=== PATIENT | male | born 1940 | race Hispanic/Latino ===

== ENCOUNTER 2017-10-08 14:41 | Inpatient (IN) | payer MEDICARE ==
[2017-10-08] MEDS ORDERED: ZOFRAN IV ONE (16:23)
[2017-10-08] MEDS ORDERED: MORPHINE IV ONE (16:23)
[2017-10-08] MEDS ORDERED: NACL 0.9% 1000 ML 1,000 ML IV ONE (16:23)
[2017-10-08 17:02] LABS: Basophils # (Auto) 0.1 K/mm3 (0.0-0.1); Basophils % (Auto) 0.7 % (0.0-1.8); Eosinophils # (Auto) 0.4 K/mm3 (0.0-0.4); Eosinophils % (Auto) 5.2 % (0.0-4.3); Hemoglobin 13.4 gm/dl (11.8-15.2); Lymphocytes # (Auto) 1.3 K/mm3 (1.2-5.4); Lymphocytes % (Auto) 15.6 % (13.4-35.0); Mean Corpuscular HGB Conc 33 % (32-34); Mean Corpuscular Hemoglobin 28 pg (28-32); Mean Corpuscular Volume 86 fl (84-94); Monocytes # (Auto) 0.7 K/mm3 (0.0-0.8); Monocytes % (Auto) 8.7 % (0.0-7.3); Platelet Count 264 K/mm3 (140-440); Red Blood Count 4.77 M/mm3 (3.65-5.03); Red Cell Distribution Width 15.7 % (13.2-15.2)
[2017-10-08 17:10] LABS: INR 2.72 (0.87-1.13)
[2017-10-08 17:11] LABS: Partial Thromboplastin Time 51.7 Sec. (24.2-36.6)
[2017-10-08 17:23] LABS: BUN/Creatinine Ratio 23; Blood Urea Nitrogen 14 mg/dL (9-20); Calcium 8.7 mg/dL (8.4-10.2); Hemolysis Index 5
--- NOTE | 2017-10-08 17:45 | Emergency Department Report ---
ED Fall HPI - General Chief Complaint: Fall Stated Complaint: FELL YESTERDAY/GENERLIZED WEAKNESS Time Seen by Provider: 10/08/17 16:14 Source: patient Mode of arrival: Stretcher - History of Present Illness Initial Comments: Patient is a 77-year-old male who is presenting status post a fall yesterday. Patient states he walks with a walker because of significant weakness and he bought a new walking yesterday that while trying to use it it collapsed. Patient states he fell forward and rolled. Patient states he went down on his knees first. The patient denies any loss of consciousness. Patient complaining of bilateral knee pain his right upper extremity has bruising but there is no bony tenderness. Patient also states he has a mild headache and neck tenderness. Patient states takes some pains are approximate 7 out of 10 in severity. Patient has been ambulatory since the fall. This occurred last night and the patient was hurting more this morning and could not stand unassisted of this morning which is what prompted him to come to the hospital. - Related Data Home Medications Medication Instructions Recorded Confirmed Last Taken Ascorbic Acid [Vitamin C] 1,000 mg PO QDAY 10/08/17 10/08/17 Unknown Cholecalciferol (Vitamin D3) 500 unit PO QDAY 10/08/17 10/08/17 Unknown [Vitamin D3] Diltiazem [CarDIZEM] 60 mg PO BID 10/08/17 10/08/17 Unknown Duloxetine HCl [DULoxetine] 30 mg PO QDAY 10/08/17 10/08/17 Unknown Folic Acid 400 mcg PO QDAY 10/08/17 10/08/17 Unknown Multivit-Min/FA/Lycopen/Lutein 1 each PO QDAY 10/08/17 10/08/17 Unknown [Centrum Silver Tablet] [place]-3 Fatty Acids/Fish Oil [Fish 300 mg PO QDAY 10/08/17 10/08/17 Unknown Oil] Rosuvastatin Calcium 5 mg PO QWEEK 10/08/17 10/08/17 Unknown Warfarin [Coumadin] 7.5 mg PO QDAY 10/08/17 10/08/17 Unknown Warfarin [Coumadin] 10 mg PO QWEEK 10/08/17 10/08/17 Unknown glipiZIDE [glipiZIDE ER] 5 mg PO BID 10/08/17 10/08/17 Unknown metFORMIN [Glucophage] 1,000 mg PO QHS 10/08/17 10/08/17 Unknown Previous Rx's Medication Instructions Recorded Last Taken Type Tamsulosin [Flomax] 0.4 mg PO BID #60 capsule 10/09/17 Unknown Rx Allergies Allergy/AdvReac Type Severity Reaction Status Date / Time No Known Allergies Allergy Unverified 03/25/14 10:36 ED Review of Systems ROS: Stated complaint: FELL YESTERDAY/GENERLIZED WEAKNESS Other details as noted in HPI Comment: All other systems reviewed and negative ED Past Medical Hx - Past Medical History Hx Hypertension: Yes Hx Diabetes: Yes Hx COPD: Yes Additional medical history: High cholesterol - Social History Smoking Status: Never Smoker Substance Use Type: None - Medications Home Medications: Home Medications Medication Instructions Recorded Confirmed Last Taken Type Ascorbic Acid [Vitamin C] 1,000 mg PO QDAY 10/08/17 10/08/17 Unknown History Cholecalciferol (Vitamin D3) 500 unit PO QDAY 10/08/17 10/08/17 Unknown History [Vitamin D3] Diltiazem [CarDIZEM] 60 mg PO BID 10/08/17 10/08/17 Unknown History Duloxetine HCl [DULoxetine] 30 mg PO QDAY 10/08/17 10/08/17 Unknown History Folic Acid 400 mcg PO QDAY 10/08/17 10/08/17 Unknown History Multivit-Min/FA/Lycopen/Lutein 1 each PO QDAY 10/08/17 10/08/17 Unknown History [Centrum Silver Tablet] [place]-3 Fatty Acids/Fish Oil [Fish 300 mg PO QDAY 10/08/17 10/08/17 Unknown History Oil] Rosuvastatin Calcium 5 mg PO QWEEK 10/08/17 10/08/17 Unknown History Warfarin [Coumadin] 7.5 mg PO QDAY 10/08/17 10/08/17 Unknown History Warfarin [Coumadin] 10 mg PO QWEEK 10/08/17 10/08/17 Unknown History glipiZIDE [glipiZIDE ER] 5 mg PO BID 10/08/17 10/08/17 Unknown History metFORMIN [Glucophage] 1,000 mg PO QHS 10/08/17 10/08/17 Unknown History Tamsulosin [Flomax] 0.4 mg PO BID #60 capsule 10/09/17 Unknown Rx ED Physical Exam - General Limitations: No Limitations General appearance: alert, in no apparent distress - Head Head exam: Present: normocephalic, other (patient has a small abrasion at the bridge of the nose) - Eye Eye exam: Present: normal appearance - ENT ENT exam: Present: mucous membranes moist - Neck Neck exam: Present: normal inspection, tenderness (generalized C-spine tenderness), full ROM - Respiratory Respiratory exam: Present: normal lung sounds bilaterally. Absent: respiratory distress, wheezes, rales, rhonchi - Cardiovascular Cardiovascular Exam: Present: regular rate, normal rhythm. Absent: systolic murmur, diastolic murmur, rubs, gallop - GI/Abdominal GI/Abdominal exam: Present: soft, normal bowel sounds. Absent: distended, tenderness - Rectal Rectal exam: Present: deferred - Extremities Exam Extremities exam: Present: tenderness (she has bilateral knee tenderness on palpation. Patient's right upper extremity has significant bruising however he has full range of motion to the elbow wrist. He does have a skin tear of the right forearm. The move this along with no significant pain.), other (patient is unable to ambulate or actively move his legs secondary to knee pain). Absent : full ROM - Back Exam Back exam: Present: normal inspection - Neurological Exam Neurological exam: Present: alert, oriented X3 - Psychiatric Psychiatric exam: Present: normal affect, normal mood - Skin Skin exam: Present: warm, dry, intact, normal color. Absent: rash ED Course Vital Signs 10/08/17 10/08/17 10/08/17 15:08 18:10 19:45 Temperature 97.4 F L Pulse Rate 82 83 102 H Respiratory 18 22 22 Rate Blood Pressure 144/63 Blood Pressure 153/80 170/87 [Right] O2 Sat by Pulse 96 93 96 Oximetry 10/08/17 10/08/17 10/08/17 20:30 21:45 22:00 Temperature Pulse Rate 92 H 102 H 104 H Respiratory 20 22 Rate Blood Pressure Blood Pressure 155/79 135/72 [Right] O2 Sat by Pulse 94 96 Oximetry 10/08/17 10/08/17 10/09/17 22:30 23:25 08:00 Temperature 97.9 F Pulse Rate 104 H 108 H 84 Respiratory 20 16 Rate Blood Pressure 137/78 Blood Pressure 136/75 137/78 143/69 [Right] O2 Sat by Pulse 95 100 Oximetry 10/09/17 10/09/17 11:03 16:01 Temperature Pulse Rate 62 Respiratory 18 Rate Blood Pressure 143/69 Blood Pressure [Right] O2 Sat by Pulse Oximetry - Reevaluation(s) Reevaluation #1: 10/09/17 16:46 Patient was signed out to Dr. Demarco this morning waited for case management. Case management to several hours to see the patient and stated that they felt as though the patient needed to be admitted for custodial placement. They do not believe that a rehabilitation facility I would be appropriate for this patient. Physical therapy also saw the patient today and stated that they agreed that the patient is cannot walk. The patient has continued to be here in emergency department I have consulted Dr. Murray who states that he will admit the patient because he is not laboratory. The patient be admitted to the hospital. ED Medical Decision Making - Lab Data Result diagrams: 10/08/17 16:52 10/08/17 16:52 - Radiology Data Radiology results: report reviewed Patient's head CT and CT C-spine and facial bone CT showed no acute abdomen. Patient's x-ray of bilateral knees show severe degenerative changes but no acute fracture. - Medical Decision Making Patient is a 77-year-old male who is unable to ambulate today secondary to a fall yesterday. Patient states he has excruciating pain and bilateral knees. Patient was already having a lot of difficulty walking since the fall he is unable to bear weight. We have tried to get the patient to stand here in emergency department he is unable. Patient's laboratory studies and his CTs are not showing any indication of the patient needs to be admitted however I do feels though it is unsafe to send the patient back to his home in this state. Patient will be kept here in the emergency department until a social economist consult to see if there is any safe way that the patient can be discharged home. Patient may need rehabilitation or home health. Critical care attestation.: If time is entered above; I have spent that time in minutes in the direct care of this critically ill patient, excluding procedure time. ED Disposition Clinical Impression: Skin tear, Dependent edema Fall Qualifiers: Encounter type: initial encounter Qualified Code(s): W19.XXXA - Unspecified fall, initial encounter Contusion Qualifiers: Encounter type: initial encounter Contusion area: upper arm Laterality: right Qualified Code(s): S40.021A - Contusion of right upper arm, initial encounter Closed head injury Qualifiers: Encounter type: initial encounter Qualified Code(s): S09.90XA - Unspecified injury of head, initial encounter Facial abrasion Qualifiers: Encounter type: initial encounter Qualified Code(s): S00.81XA - Abrasion of other part of head, initial encounter Cervical strain Qualifiers: Encounter type: initial encounter Qualified Code(s): S16.1XXA - Strain of muscle, fascia and tendon at neck level, initial encounter Disposition: -09 OP ADMIT IP TO THIS HOSP Is pt being admited?: Yes Does the pt Need Aspirin: No Condition: Stable Instructions: Muscle Strain (ED) Prescriptions: Tamsulosin [Flomax] 0.4 mg PO BID #60 capsule Referrals: ALLAN GALICIA JR, MD [Primary Care Provider] - 3-5 Days
--- NOTE | 2017-10-08 18:51 | Cat Scan Report ---
FINAL REPORT EXAM: CT HEAD/BRAIN WO CON HISTORY: fall injury TECHNIQUE: CT head without contrast PRIORS: None. FINDINGS: No acute intra-axial or extra-axial hemorrhage is identified. There is no evidence of midline shift or mass effect. The ventricles and sulci are within normal limits. Mckeon-white matter differentiation is intact. No acute parenchymal abnormalities seen. Bony calvarium is grossly intact. Visualized portions of the mastoids and paranasal sinuses are unremarkable. IMPRESSION: Negative CT head
--- NOTE | 2017-10-08 18:54 | Cat Scan Report ---
FINAL REPORT EXAM: CT FACIAL BONES WO CON HISTORY: fall injury TECHNIQUE: Maxillofacial CT with coronal and sagittal multiplanar reconstruction PRIORS: None. FINDINGS: The nasal bone is intact. The zygomatic arches are within normal limits. No evidence of fluid level within the paranasal sinuses. No intraorbital abnormalities seen. No facial fractures are identified. The TM joints and the mandible are within normal limits. IMPRESSION: Negative. No evidence of acute facial bone fracture.
--- NOTE | 2017-10-08 18:58 | Cat Scan Report ---
FINAL REPORT EXAM: CT CERVICAL SPINE WO CON HISTORY: fall injury TECHNIQUE: CT cervical spine with reconstructions PRIORS: None. FINDINGS: Vertebral bodies demonstrate normal height and alignment. There is some spondylosis with disc space narrowing and anterior osteophyte C5-5-C6-C6 C7. The facet joints demonstrate normal alignment. The spinous processes are intact. Craniocervical junction is unremarkable. C1 and C2 are intact. IMPRESSION: Degenerative disc changes lower cervical spine No acute abnormality seen.
--- NOTE | 2017-10-08 19:38 | XRay Report ---
FINAL REPORT EXAM: XR KNEE BILAT 1-2V HISTORY: fall injury/ KNEE BRUISE/ 2V CHANGE APPROVED BY DR. PELAEZ TECHNIQUE: Bilateral knees 6 views PRIORS: None. FINDINGS: There is advanced bilateral tricompartmental joint space narrowing with marginal patellar and femoral osteophytes noted. No evidence for joint effusion bilaterally. There is some degenerative subluxation at the right knee. No acute fractures are identified IMPRESSION: Advanced bilateral DJD Otherwise no acute findings
[2017-10-08] MEDS ORDERED: NORCO 7.5/325 PO PRN (20:07)
[2017-10-08] MEDS: GLUCOTROL XL PO SCH (23:25)
[2017-10-08] MEDS: LOPRESSOR PO SCH (23:25)
[2017-10-09] MEDS: LOPRESSOR PO SCH ×2 (11:03→21:27)
[2017-10-09] MEDS: GLUCOTROL XL PO SCH ×2 (11:03→21:30)
[2017-10-09] MEDS ORDERED: FLOMAX PO ONE (12:37)
[2017-10-09] MEDS: NORCO 7.5/325 PO PRN ×2 (16:01→21:35)
--- NOTE | 2017-10-09 20:53 | History and Physical Report ---
History of Present Illness Date of examination: 10/09/17 Date of admission: 10/09/17 16:50 Chief complaint: Frequent falls History of present illness: - History of Present Illness Initial Comments: Patient is a 77-year-old male Morbidly obese who is presenting status post a fall yesterday. Patient states he walks with a walker because of significant weakness and he bought a new walker yesterday that while trying to use it ---it collapsed. Patient states he fell forward and rolled. Patient states he went down on his knees first. The patient denies any loss of consciousness. Patient complaining of bilateral knee pain his right upper extremity has bruising but there is no bony tenderness. Patient also states he has a mild headache and neck tenderness. Patient states takes some pains are approximate 7 out of 10 in severity. Patient has been ambulatory since the fall. This occurred last night and the patient was hurting more this morning and could not stand unassisted of this morning which is what prompted him to come to the hospital. Basically he is not able to walk now because of pain and weakness and Morbid obesity and wants SNF placement for rehab. Past Medical History Hx Hypertension: Yes Hx Diabetes: Yes Hx COPD: Yes Additional medical history: High cholesterol Social History Smoking Status: Never Smoker Substance Use Type: None Family Hx Htn Medications Home Medications: Home Medications Medication Instructions Recorded Confirmed Last Taken Type Ascorbic Acid [Vitamin C] 1,000 mg PO QDAY 10/08/17 10/08/17 Unknown History Cholecalciferol (Vitamin D3) 500 unit PO QDAY 10/08/17 10/08/17 Unknown History [Vitamin D3] Diltiazem [CarDIZEM] 60 mg PO BID 10/08/17 10/08/17 Unknown History Duloxetine HCl [DULoxetine] 30 mg PO QDAY 10/08/17 10/08/17 Unknown History Folic Acid 400 mcg PO QDAY 10/08/17 10/08/17 Unknown History Multivit-Min/FA/Lycopen/Lutein 1 each PO QDAY 10/08/17 10/08/17 Unknown History [Centrum Silver Tablet] [place]-3 Fatty Acids/Fish Oil [Fish 300 mg PO QDAY 10/08/17 10/08/17 Unknown History Oil] Rosuvastatin Calcium 5 mg PO QWEEK 10/08/17 10/08/17 Unknown History Warfarin [Coumadin] 7.5 mg PO QDAY 10/08/17 10/08/17 Unknown History Warfarin [Coumadin] 10 mg PO QWEEK 10/08/17 10/08/17 Unknown History glipiZIDE [glipiZIDE ER] 5 mg PO BID 10/08/17 10/08/17 Unknown History metFORMIN [Glucophage] 1,000 mg PO QHS 10/08/17 10/08/17 Unknown History Tamsulosin [Flomax] 0.4 mg PO BID #60 capsule 10/09/17 Unknown Rx Medications and Allergies Allergies Allergy/AdvReac Type Severity Reaction Status Date / Time No Known Allergies Allergy Unverified 03/25/14 10:36 Home Medications Medication Instructions Recorded Confirmed Last Taken Type Ascorbic Acid [Vitamin C] 1,000 mg PO QDAY 10/08/17 10/08/17 Unknown History Cholecalciferol (Vitamin D3) 500 unit PO QDAY 10/08/17 10/08/17 Unknown History [Vitamin D3] Diltiazem [CarDIZEM] 60 mg PO BID 10/08/17 10/08/17 Unknown History Duloxetine HCl [DULoxetine] 30 mg PO QDAY 10/08/17 10/08/17 Unknown History Folic Acid 400 mcg PO QDAY 10/08/17 10/08/17 Unknown History Multivit-Min/FA/Lycopen/Lutein 1 each PO QDAY 10/08/17 10/08/17 Unknown History [Centrum Silver Tablet] [place]-3 Fatty Acids/Fish Oil [Fish 300 mg PO QDAY 10/08/17 10/08/17 Unknown History Oil] Rosuvastatin Calcium 5 mg PO QWEEK 10/08/17 10/08/17 Unknown History Warfarin [Coumadin] 7.5 mg PO QDAY 10/08/17 10/08/17 Unknown History Warfarin [Coumadin] 10 mg PO QWEEK 10/08/17 10/08/17 Unknown History glipiZIDE [glipiZIDE ER] 5 mg PO BID 10/08/17 10/08/17 Unknown History metFORMIN [Glucophage] 1,000 mg PO QHS 10/08/17 10/08/17 Unknown History Tamsulosin [Flomax] 0.4 mg PO BID #60 capsule 10/09/17 Unknown Rx Active Meds: Active Medications Acetaminophen/Hydrocodone Bitart ([place] 7.5/325) 1 each PO Q6H PRN PRN Reason: Pain Last Admin: 10/09/17 16:01 Dose: 1 each Glipizide (Glucotrol Xl) 5 mg PO BID [facility] Last Admin: 10/09/17 11:03 Dose: 5 mg Heparin Sodium (Porcine) (Heparin) 5,000 unit SUB-Q Q8HR [facility] Metoprolol Tartrate (Lopressor) 50 mg PO BID [facility] Last Admin: 10/09/17 11:03 Dose: 50 mg Review of Systems All systems: negative Constitutional: no weight loss, no weight gain, no fever, no chills, no sweats, no night sweats Ears, nose, mouth and throat: no hoarseness, no sore throat Respiratory: no cough, no cough with sputum, no excessive sputum, no hemoptysis , no shortness of breath, no dyspnea on exertion Gastrointestinal: no abdominal pain, no nausea, no vomiting, no diarrhea, no constipation Genitourinary Male: no dysuria, no hematuria, no flank pain, no discharge, no urinary hesitancy Rectal: no pain Musculoskeletal: no neck stiffness, no neck pain, no shooting arm pain, no arm numbness/tingling, no low back pain Integumentary: no rash, no pruritis, no redness, no sores Neurological: no head injury, no transient paralysis, no paralysis, no weakness , no parathesias Psychiatric: no anxiety, no memory loss, no change in sleep habits, no sleep disturbances, no insomnia, no hypersomnia, no change in appetite, no change in libido Endocrine: no cold intolerance, no heat intolerance, no polyphagia, no excessive thirst Hematologic/Lymphatic: no easy bruising, no easy bleeding Allergic/Immunologic: no urticaria, no allergic rhinitis, no wheezing Exam - Constitutional Vitals: Temp Pulse Resp BP Pulse Ox 98.1 F 83 18 134/57 90 10/09/17 19:41 10/09/17 19:41 10/09/17 19:41 10/09/17 19:41 10/09/17 19:41 General appearance: Present: no acute distress, well-nourished - EENT Eyes: Present: PERRL ENT: hearing intact, clear oral mucosa - Neck Neck: Present: supple, normal ROM - Respiratory Respiratory effort: normal Respiratory: bilateral: CTA - Cardiovascular Heart rate: 70 Rhythm: regular Heart Sounds: Present: S1 & S2. Absent: rub, click - Extremities Extremities: no ischemia, pulses intact, pulses symmetrical, No edema Peripheral Pulses: within normal limits - Abdominal General gastrointestinal: Present: soft, non-tender, non-distended, normal bowel sounds Male genitourinary: Present: normal - Integumentary Integumentary: Present: clear, warm, dry - Musculoskeletal Musculoskeletal: gait normal, strength equal bilaterally - Psychiatric Psychiatric: appropriate mood/affect, intact judgment & insight - Neurologic Neurologic: CNII-XII intact, moves all extremities - Allied Health Allied health notes reviewed: nursing, case management Results - Labs CBC & Chem 7: 10/08/17 16:52 10/08/17 16:52 Labs: Laboratory Last Values WBC 8.0 K/mm3 (4.5-11.0) 10/08/17 16:52 RBC 4.77 M/mm3 (3.65-5.03) 10/08/17 16:52 Hgb 13.4 gm/dl (11.8-15.2) 10/08/17 16:52 Hct 41.0 % (35.5-45.6) 10/08/17 16:52 MCV 86 fl (84-94) 10/08/17 16:52 MCH 28 pg (28-32) 10/08/17 16:52 MCHC 33 % (32-34) 10/08/17 16:52 RDW 15.7 % (13.2-15.2) H 10/08/17 16:52 Plt Count 264 K/mm3 (140-440) 10/08/17 16:52 Lymph % (Auto) 15.6 % (13.4-35.0) 10/08/17 16:52 [place] % (Auto) 8.7 % (0.0-7.3) H 10/08/17 16:52 Eos % (Auto) 5.2 % (0.0-4.3) H 10/08/17 16:52 Baso % (Auto) 0.7 % (0.0-1.8) 10/08/17 16:52 Lymph # 1.3 K/mm3 (1.2-5.4) 10/08/17 16:52 [place] # 0.7 K/mm3 (0.0-0.8) 10/08/17 16:52 Eos # 0.4 K/mm3 (0.0-0.4) 10/08/17 16:52 Baso # 0.1 K/mm3 (0.0-0.1) 10/08/17 16:52 Seg Neutrophils % 69.8 % (40.0-70.0) 10/08/17 16:52 Seg Neutrophils # 5.6 K/mm3 (1.8-7.7) 10/08/17 16:52 PT 30.7 Sec. (12.2-14.9) H 10/08/17 16:52 INR 2.72 (0.87-1.13) H 10/08/17 16:52 APTT 51.7 Sec. (24.2-36.6) H 10/08/17 16:52 Sodium 138 mmol/L (137-145) 10/08/17 16:52 Potassium 3.6 mmol/L (3.6-5.0) 10/08/17 16:52 Chloride 98.5 mmol/L (98-107) 10/08/17 16:52 Carbon Dioxide 24 mmol/L (22-30) 10/08/17 16:52 Anion Gap 19 mmol/L 10/08/17 16:52 BUN 14 mg/dL (9-20) 10/08/17 16:52 Creatinine 0.6 mg/dL (0.8-1.5) L 10/08/17 16:52 Estimated GFR > 60 ml/min 10/08/17 16:52 BUN/Creatinine Ratio 23 % 10/08/17 16:52 Glucose 83 mg/dL (75-100) 10/08/17 16:52 POC Glucose 177 (70-105) H 10/08/17 21:58 Calcium 8.7 mg/dL (8.4-10.2) 10/08/17 16:52 - Imaging and Cardiology EKG: report reviewed Imaging and Cardiology: Multiple xrays involving Knee Cspine and Facial bones are negative. Assessment and Plan Advance Directives: Yes (Full code) VTE prophylaxis?: Chemical Plan of care discussed with patient/family: Yes - Patient Problems (1) Myopathy Current Visit: Yes Status: Acute Plan to address problem: Sec to statins and obesity Needs PT/OT SNF placement (2) Fall Current Visit: Yes Status: Acute Qualifiers: Encounter type: initial encounter Qualified Code(s): W19.XXXA - Unspecified fall, initial encounter Plan to address problem: Sec to weakness (3) Physical debility Current Visit: Yes Status: Acute Plan to address problem: PT/OT SNF placement (4) HTN (hypertension) Current Visit: Yes Status: Chronic Qualifiers: Hypertension type: essential hypertension Qualified Code(s): I10 - Essential (primary) hypertension Plan to address problem: Cont antihypertensives (5) Depression Current Visit: Yes Status: Chronic Qualifiers: Major depression recurrence: recurrent Major depression episode severity: moderate Plan to address problem: Cont antidepressants (6) HLD (hyperlipidemia) Current Visit: Yes Status: Acute Qualifiers: Hyperlipidemia type: mixed hyperlipidemia Qualified Code(s): E78.2 - Mixed hyperlipidemia Plan to address problem: Hold statins b/c of probable myopathy (7) T2DM (type 2 diabetes mellitus) Current Visit: Yes Status: Acute Plan to address problem: Cont Oral hypoglycemics and coverage (8) A-fib Current Visit: Yes Status: Chronic Qualifiers: Atrial fibrillation type: chronic Qualified Code(s): I48.2 - Chronic atrial fibrillation Plan to address problem: Cont Coumadin (9) DVT prophylaxis Current Visit: Yes Status: Acute Plan to address problem: On coumadin
[2017-10-09] MEDS ORDERED: NON-FORMULARY (Ascorbic Acid [Vitamin C] 1,000 MG) PO SCH (21:00)
[2017-10-09] MEDS ORDERED: NON-FORMULARY (Multivit-Min/Fa/Lycopen/Lutein [Centrum Silver Tablet] 1 EACH) PO SCH (21:00)
[2017-10-09] MEDS ORDERED: FOLIC ACID 400 MCG PO SCH (21:00)
[2017-10-09] MEDS: GLUCOPHAGE PO SCH (21:29)
[2017-10-09] MEDS: CYMBALTA PO SCH (21:31)
[2017-10-09] MEDS: CARDIZEM PO SCH (21:32)
[2017-10-09] MEDS: HEPARIN SUB-Q SCH (21:37)
[2017-10-10] MEDS: HEPARIN SUB-Q SCH (07:09)
[2017-10-10 07:32] LABS: INR 2.06 (0.87-1.13)
[2017-10-10] MEDS: HumaLOG SUB-Q SCH ×4 (08:42→22:11)
[2017-10-10] MEDS ORDERED: COUMADIN PO SCH (10:00)
[2017-10-10] MEDS: GLUCOTROL XL PO SCH ×3 (10:27→22:08)
[2017-10-10] MEDS: THERAGRAN-M Tab PO SCH (10:27)
[2017-10-10] MEDS: VITAMIN C PO SCH (10:27)
[2017-10-10] MEDS: CARDIZEM PO SCH ×2 (10:28→22:09)
[2017-10-10] MEDS: CYMBALTA PO SCH (10:28)
[2017-10-10] MEDS: LOPRESSOR PO SCH ×2 (10:28→22:08)
[2017-10-10] MEDS: VITAMIN D3 PO SCH ×3 (10:32→10:58)
[2017-10-10] MEDS: FOLVITE PO SCH (10:32)
--- NOTE | 2017-10-10 12:23 | Progress Note ---
Assessment and Plan Assessment and plan: Patient is a 77-year-old male Morbidly obese who is presenting status post a fall yesterday. Patient states he walks with a walker because of significant weakness and he bought a new walker yesterday that while trying to use it ---it collapsed. Patient states he fell forward and rolled. Patient states he went down on his knees first. The patient denies any loss of consciousness. Patient complaining of bilateral knee pain his right upper extremity has bruising but there is no bony tenderness. Patient also states he has a mild headache and neck tenderness. Patient states takes some pains are approximate 7 out of 10 in severity. Patient has been ambulatory since the fall. This occurred last night and the patient was hurting more this morning and could not stand unassisted of this morning which is what prompted him to come to the hospital. Basically he is not able to walk now because of pain and weakness and Morbid obesity and wants SNF placement for rehab. Testicular ultrasound: pending Assessment and plan (1) Myopathy Current Visit: Yes Status: Acute Plan to address problem: Sec to statins and obesity improving check CPK level Needs PT/OT SNF placement (2) Fall Current Visit: Yes Status: Acute Qualifiers: Encounter type: initial encounter Qualified Code(s): W19.XXXA - Unspecified fall, initial encounter Plan to address problem: Sec to weakness PT/OT EVAL (3) Physical debility Current Visit: Yes Status: Acute Plan to address problem: PT/OT SNF placement (4) HTN (hypertension) Current Visit: Yes Status: Chronic Qualifiers: Hypertension type: essential hypertension Qualified Code(s): I10 - Essential (primary) hypertension Plan to address problem: Cont antihypertensives (5) Depression Current Visit: Yes Status: Chronic Qualifiers: Major depression recurrence: recurrent Major depression episode severity: moderate Plan to address problem: Cont antidepressants (6) HLD (hyperlipidemia) Current Visit: Yes Status: Acute Qualifiers: Hyperlipidemia type: mixed hyperlipidemia Qualified Code(s): E78.2 - Mixed hyperlipidemia Plan to address problem: Hold statins b/c of probable myopathy (7) T2DM (type 2 diabetes mellitus) Current Visit: Yes Status: Acute Plan to address problem: Cont Oral hypoglycemics and coverage (8) A-fib Current Visit: Yes Status: Chronic Qualifiers: Atrial fibrillation type: chronic Qualified Code(s): I48.2 - Chronic atrial fibrillation Plan to address problem: Cont Coumadin (9) Secondary Hypercoagulable state on coumadin and therapeutic (10)Srotacal edema R/O Epididymitis Testicular ultrasound scrotal support (11)DVT prophylaxis Current Visit: Yes Status: Acute Plan to address problem: On coumadin History Interval history: Patient seen and examined, remains very lathergic, requiring assistance with movement in the bed. He reports close follow up with his primary care doctors. Patient is admitted following a fall, mechanical fall. He denies any chest pain , nausea, vomiting, diarrhea. Hospitalist Physical - Physical exam Narrative exam: General appearance: Present: no acute distress, well-nourished, morbidly obese - EENT Eyes: Present: PERRL ENT: hearing intact, clear oral mucosa - Neck Neck: Present: supple, normal ROM - Respiratory Respiratory effort: normal Respiratory: bilateral: CTA - Cardiovascular Heart rate: 70 Rhythm: regular Heart Sounds: Present: S1 & S2. Absent: rub, click - Extremities Extremities: no ischemia, pulses intact, pulses symmetrical, No edema Peripheral Pulses: within normal limits - Abdominal General gastrointestinal: Present: soft, non-tender, non-distended, normal bowel sounds Male genitourinary: Present: normal - Integumentary Integumentary: Present: multiple ecchymotic lesions, especially upper ext, dry scrotal edema and tender to touch - Musculoskeletal Musculoskeletal: gait normal, strength equal bilaterally - Psychiatric Psychiatric: appropriate mood/affect, intact judgment & insight - Neurologic Neurologic: CNII-XII intact, moves all extremities - Allied Health Allied health notes reviewed: nursing, case management - Constitutional Vitals: Temp Pulse Resp BP Pulse Ox 98.0 F 84 18 131/62 90 10/10/17 07:21 10/10/17 07:21 10/10/17 10:00 10/10/17 07:21 10/10/17 07:21 General appearance: Present: no acute distress, well-nourished Results - Labs CBC & Chem 7: 10/08/17 16:52 10/08/17 16:52 Labs: Laboratory Last Values WBC 8.0 K/mm3 (4.5-11.0) 10/08/17 16:52 RBC 4.77 M/mm3 (3.65-5.03) 10/08/17 16:52 Hgb 13.4 gm/dl (11.8-15.2) 10/08/17 16:52 Hct 41.0 % (35.5-45.6) 10/08/17 16:52 MCV 86 fl (84-94) 10/08/17 16:52 MCH 28 pg (28-32) 10/08/17 16:52 MCHC 33 % (32-34) 10/08/17 16:52 RDW 15.7 % (13.2-15.2) H 10/08/17 16:52 Plt Count 264 K/mm3 (140-440) 10/08/17 16:52 Lymph % (Auto) 15.6 % (13.4-35.0) 10/08/17 16:52 [place] % (Auto) 8.7 % (0.0-7.3) H 10/08/17 16:52 Eos % (Auto) 5.2 % (0.0-4.3) H 10/08/17 16:52 Baso % (Auto) 0.7 % (0.0-1.8) 10/08/17 16:52 Lymph # 1.3 K/mm3 (1.2-5.4) 10/08/17 16:52 [place] # 0.7 K/mm3 (0.0-0.8) 10/08/17 16:52 Eos # 0.4 K/mm3 (0.0-0.4) 10/08/17 16:52 Baso # 0.1 K/mm3 (0.0-0.1) 10/08/17 16:52 Seg Neutrophils % 69.8 % (40.0-70.0) 10/08/17 16:52 Seg Neutrophils # 5.6 K/mm3 (1.8-7.7) 10/08/17 16:52 PT 24.5 Sec. (12.2-14.9) H 10/10/17 07:02 INR 2.06 (0.87-1.13) H 10/10/17 07:02 APTT 51.7 Sec. (24.2-36.6) H 10/08/17 16:52 Sodium 138 mmol/L (137-145) 10/08/17 16:52 Potassium 3.6 mmol/L (3.6-5.0) 10/08/17 16:52 Chloride 98.5 mmol/L (98-107) 10/08/17 16:52 Carbon Dioxide 24 mmol/L (22-30) 10/08/17 16:52 Anion Gap 19 mmol/L 10/08/17 16:52 BUN 14 mg/dL (9-20) 10/08/17 16:52 Creatinine 0.6 mg/dL (0.8-1.5) L 10/08/17 16:52 Estimated GFR > 60 ml/min 10/08/17 16:52 BUN/Creatinine Ratio 23 % 10/08/17 16:52 Glucose 83 mg/dL (75-100) 10/08/17 16:52 POC Glucose 159 (70-105) H 10/10/17 11:46 Calcium 8.7 mg/dL (8.4-10.2) 10/08/17 16:52
[2017-10-10] MEDS: COUMADIN PO SCH (17:36)
[2017-10-10] MEDS: GLUCOPHAGE PO SCH (22:08)
[2017-10-10] MEDS: FLOMAX PO SCH (23:20)
--- NOTE | 2017-10-11 00:07 | Ultrasound Report ---
FINAL REPORT PROCEDURE: US TESTICULAR DOPPLER COMP TECHNIQUE: Real-time cedeño-scale and color flow Doppler sonography in multiple planes of the scrotum, testicles, and epididymes was performed. Velocity spectral waveform analysis Doppler imaging of the arterial inflow and venous outflow of the testicles was performed with image documentation. CPT 33764 and 06388 HISTORY: epididymitis COMPARISON: No prior studies are available for comparison. FINDINGS: RIGHT TESTICLE: Size: 5.3 x 2.5 x 2.6 cm . Appearance: Normal size and echotexture . Arterial blood flow: Normal spectral waveforms, flow velocities and color flow images.. Venous blood flow: Normal spectral waveforms and color flow images. Right epididymis: Normal size and echotexture . Hydrocele: Moderate degree hydrocele is noted. LEFT TESTICLE Size: 4.2 x 2.9 cm . Appearance: Normal size and echotexture . Arterial blood flow: Normal spectral waveforms, flow velocities and color flow images.. Venous blood flow: Normal spectral waveforms and color flow images. Leftepididymis: Normal size and echotexture . Hydrocele: Moderate degree hydrocele is noted. IMPRESSION: Moderate degree bilateral hydrocele
[2017-10-11 07:03] LABS: INR 1.8 (0.87-1.13)
[2017-10-11 07:15] LABS: BUN/Creatinine Ratio 25; Blood Urea Nitrogen 15 mg/dL (9-20); Calcium 8.8 mg/dL (8.4-10.2); Hemolysis Index 6
[2017-10-11] MEDS: HumaLOG SUB-Q SCH ×4 (07:47→23:51)
[2017-10-11] MEDS ORDERED: PROAIR IH PRN (10:22)
[2017-10-11] MEDS ORDERED: PROVENTIL IH PRN (10:35)
[2017-10-11] MEDS: VITAMIN C PO SCH (10:42)
[2017-10-11] MEDS: VITAMIN D3 PO SCH (10:42)
[2017-10-11] MEDS: THERAGRAN-M Tab PO SCH (10:42)
[2017-10-11] MEDS: CARDIZEM PO SCH ×2 (10:42→23:51)
[2017-10-11] MEDS: CYMBALTA PO SCH (10:43)
[2017-10-11] MEDS: GLUCOTROL XL PO SCH ×2 (10:43→23:52)
[2017-10-11] MEDS: FOLVITE PO SCH (10:43)
[2017-10-11] MEDS: LOPRESSOR PO SCH ×2 (10:43→23:52)
[2017-10-11] MEDS ORDERED: MILK OF MAGNESIA PO ONE (15:00)
[2017-10-11] MEDS: NORCO 7.5/325 PO PRN (16:36)
[2017-10-11] MEDS: COLACE PO SCH ×2 (17:07→23:52)
[2017-10-11] MEDS: COUMADIN PO SCH (17:07)
[2017-10-11] MEDS: FLONASE NS SCH (17:08)
--- NOTE | 2017-10-11 22:27 | Progress Note ---
Assessment and Plan Assessment and plan: Patient is a 77-year-old male Morbidly obese who is presenting status post a fall yesterday. Patient states he walks with a walker because of significant weakness and he bought a new walker yesterday that while trying to use it ---it collapsed. Patient states he fell forward and rolled. Patient states he went down on his knees first. The patient denies any loss of consciousness. Patient complaining of bilateral knee pain his right upper extremity has bruising but there is no bony tenderness. Patient also states he has a mild headache and neck tenderness. Patient states takes some pains are approximate 7 out of 10 in severity. Patient has been ambulatory since the fall. This occurred last night and the patient was hurting more this morning and could not stand unassisted of this morning which is what prompted him to come to the hospital. Basically he is not able to walk now because of pain and weakness and Morbid obesity and wants SNF placement for rehab. Testicular ultrasound: pending Assessment and plan (1) Myopathy Current Visit: Yes Status: Acute Plan to address problem: Sec to statins and obesity improving ck evel, normal Needs PT/OT SNF placement (2) Fall Current Visit: Yes Status: Acute Qualifiers: Encounter type: initial encounter Qualified Code(s): W19.XXXA - Unspecified fall, initial encounter Plan to address problem: Sec to weakness PT/OT EVAL (3) Physical debility Current Visit: Yes Status: Acute Plan to address problem: PT/OT SNF placement (4) HTN (hypertension) Current Visit: Yes Status: Chronic Qualifiers: Hypertension type: essential hypertension Qualified Code(s): I10 - Essential (primary) hypertension Plan to address problem: Cont antihypertensives (5) Depression Current Visit: Yes Status: Chronic Qualifiers: Major depression recurrence: recurrent Major depression episode severity: moderate Plan to address problem: Cont antidepressants (6) HLD (hyperlipidemia) Current Visit: Yes Status: Acute Qualifiers: Hyperlipidemia type: mixed hyperlipidemia Qualified Code(s): E78.2 - Mixed hyperlipidemia Plan to address problem: Hold statins b/c of probable myopathy (7) T2DM (type 2 diabetes mellitus) Current Visit: Yes Status: Acute Plan to address problem: Cont Oral hypoglycemics and coverage (8) A-fib Current Visit: Yes Status: Chronic Qualifiers: Atrial fibrillation type: chronic Qualified Code(s): I48.2 - Chronic atrial fibrillation Plan to address problem: Cont Coumadin (9) Secondary Hypercoagulable state on coumadin and therapeutic (10)Srotacal edema R/O Epididymitis Testicular ultrasound scrotal support (11)DVT prophylaxis Current Visit: Yes Status: Acute Plan to address problem: On coumadin History Interval history: Patient seen and examined, Improving but still weak, requiring assistance with movement in the bed. Hospitalist Physical - Physical exam Narrative exam: General appearance: Present: no acute distress, well-nourished, morbidly obese - EENT Eyes: Present: PERRL ENT: hearing intact, clear oral mucosa - Neck Neck: Present: supple, normal ROM - Respiratory Respiratory effort: normal Respiratory: bilateral: CTA - Cardiovascular Heart rate: 70 Rhythm: regular Heart Sounds: Present: S1 & S2. Absent: rub, click - Extremities Extremities: no ischemia, pulses intact, pulses symmetrical, No edema Peripheral Pulses: within normal limits - Abdominal General gastrointestinal: Present: soft, non-tender, non-distended, normal bowel sounds Male genitourinary: Present: normal - Integumentary Integumentary: Present: multiple ecchymotic lesions, especially upper ext, dry scrotal edema and tender to touch - Musculoskeletal Musculoskeletal: gait normal, strength equal bilaterally - Psychiatric Psychiatric: appropriate mood/affect, intact judgment & insight - Neurologic Neurologic: CNII-XII intact, moves all extremities - Allied Health Allied health notes reviewed: nursing, case management - Constitutional Vitals: Temp Pulse Resp BP Pulse Ox 97.6 F 70 20 137/63 95 10/11/17 16:21 10/11/17 16:21 10/11/17 16:21 10/11/17 16:21 10/11/17 16:21 General appearance: Present: no acute distress, well-nourished Results - Labs CBC & Chem 7: 10/08/17 16:52 10/11/17 06:16 Labs: Laboratory Last Values WBC 8.0 K/mm3 (4.5-11.0) 10/08/17 16:52 RBC 4.77 M/mm3 (3.65-5.03) 10/08/17 16:52 Hgb 13.4 gm/dl (11.8-15.2) 10/08/17 16:52 Hct 41.0 % (35.5-45.6) 10/08/17 16:52 MCV 86 fl (84-94) 10/08/17 16:52 MCH 28 pg (28-32) 10/08/17 16:52 MCHC 33 % (32-34) 10/08/17 16:52 RDW 15.7 % (13.2-15.2) H 10/08/17 16:52 Plt Count 264 K/mm3 (140-440) 10/08/17 16:52 Lymph % (Auto) 15.6 % (13.4-35.0) 10/08/17 16:52 [place] % (Auto) 8.7 % (0.0-7.3) H 10/08/17 16:52 Eos % (Auto) 5.2 % (0.0-4.3) H 10/08/17 16:52 Baso % (Auto) 0.7 % (0.0-1.8) 10/08/17 16:52 Lymph # 1.3 K/mm3 (1.2-5.4) 10/08/17 16:52 [place] # 0.7 K/mm3 (0.0-0.8) 10/08/17 16:52 Eos # 0.4 K/mm3 (0.0-0.4) 10/08/17 16:52 Baso # 0.1 K/mm3 (0.0-0.1) 10/08/17 16:52 Seg Neutrophils % 69.8 % (40.0-70.0) 10/08/17 16:52 Seg Neutrophils # 5.6 K/mm3 (1.8-7.7) 10/08/17 16:52 PT 22.0 Sec. (12.2-14.9) H 10/11/17 06:16 INR 1.80 (0.87-1.13) H 10/11/17 06:16 APTT 51.7 Sec. (24.2-36.6) H 10/08/17 16:52 Sodium 138 mmol/L (137-145) 10/11/17 06:16 Potassium 3.9 mmol/L (3.6-5.0) 10/11/17 06:16 Chloride 99.1 mmol/L (98-107) 10/11/17 06:16 Carbon Dioxide 25 mmol/L (22-30) 10/11/17 06:16 Anion Gap 18 mmol/L 10/11/17 06:16 BUN 15 mg/dL (9-20) 10/11/17 06:16 Creatinine 0.6 mg/dL (0.8-1.5) L 10/11/17 06:16 Estimated GFR > 60 ml/min 10/11/17 06:16 BUN/Creatinine Ratio 25 % 10/11/17 06:16 Glucose 117 mg/dL (75-100) H 10/11/17 06:16 POC Glucose 152 (70-105) H 10/11/17 21:40 Calcium 8.8 mg/dL (8.4-10.2) 10/11/17 06:16 Total Creatine Kinase 98 units/L (55-170) 10/11/17 06:16
[2017-10-11] MEDS: GLUCOPHAGE PO SCH (23:51)
[2017-10-11] MEDS: FLOMAX PO SCH (23:52)
[2017-10-12 08:28] LABS: INR 1.78 (0.87-1.13)
[2017-10-12] MEDS: HumaLOG SUB-Q SCH (09:04)
[2017-10-12] MEDS: FOLVITE PO SCH (10:11)
[2017-10-12] MEDS: CARDIZEM PO SCH ×2 (10:11→21:39)
[2017-10-12] MEDS: GLUCOTROL XL PO SCH ×2 (10:12→21:39)
[2017-10-12] MEDS: COLACE PO SCH ×2 (10:12→21:38)
[2017-10-12] MEDS: LOPRESSOR PO SCH ×2 (10:13→21:44)
[2017-10-12] MEDS: THERAGRAN-M Tab PO SCH (10:13)
[2017-10-12] MEDS: VITAMIN D3 PO SCH (10:13)
[2017-10-12] MEDS: VITAMIN C PO SCH (10:14)
[2017-10-12] MEDS: CYMBALTA PO SCH (10:14)
[2017-10-12] MEDS: FLONASE NS SCH (10:30)
--- NOTE | 2017-10-12 11:06 | Discharge Summary ---
Providers - Providers Date of Admission: 10/09/17 16:50 Attending physician: FADI FELICIANO MD 10/08/17 20:00 Consult to Case Management [CONS] Stat Services Needed at Discharge: [employer] Notified:: Yes 10/09/17 11:35 Physical Therapy Evaluation and Treat [CONS] Stat Comment: Reason For Exam: social service, nonambulatory 10/10/17 06:54 Physical Therapy Evaluation and Treat [CONS] Routine Comment: Reason For Exam: Debility 10/10/17 06:55 Consult to Case Management [CONS] Routine Services Needed at Discharge: Home Health Services Notified:: COPY GIVEN TO 10/10/17 08:39 Occupational Therapy Evaluate and Treat [CONS] Routine Comment: SNF placement vs. home health Reason For Exam: Debility 10/10/17 10:44 Consult to Wound/ET Nurse [CONS] Routine Reason For Exam: wound eval Primary care physician: ALLAN GALICIA Hospitalization Reason for admission: fall Condition: Stable Hospital course: Patient is a 77-year-old male Morbidly obese who is presenting status post a fall yesterday. Patient states he walks with a walker because of significant weakness and he bought a new walker yesterday that while trying to use it ---it collapsed. Patient states he fell forward and rolled. Patient states he went down on his knees first. The patient denies any loss of consciousness. Patient complaining of bilateral knee pain his right upper extremity has bruising but there is no bony tenderness. Patient also states he has a mild headache and neck tenderness. Patient states takes some pains are approximate 7 out of 10 in severity. Patient has been ambulatory since the fall. This occurred last night and the patient was hurting more this morning and could not stand unassisted of this morning which is what prompted him to come to the hospital. Patient was noted to have hydrocele with no epididymitis. No further pain was noted after scrotal support was placed. He continues to clinically improve vital and is awaiting to be transferred to [facility].. He is to continue monitoring his Coumadin as his INR was mildly low with regular checks. Basically he is not able to walk now because of pain and weakness and Morbid obesity and wants SNF placement for rehab. Testicular ultrasound: Hydrocele Discharge diagnoses (1) Myopathy (2) Fall (3) Physical debility (4) HTN (hypertension) (5) Depression (6) HLD (hyperlipidemia) (7) T2DM (type 2 diabetes mellitus) (8) A-fib (9) Secondary Hypercoagulable state (10)Srotacal edema with hydrocele (11) morbid obesity Disposition: DC/[place]-03 SNF [facility] Time spent for discharge: 35 mins Core Measure Documentation - Palliative Care Palliative Care/ Comfort Measures: Not Applicable - Core Measures Any of the following diagnoses?: none - VTE Discharge Requirements Deep Vein Thrombosis/Pulmonary Embolism Present on Admission: No Exam - Physical Exam Narrative exam: General appearance: Present: no acute distress, well-nourished, morbidly obese - EENT Eyes: Present: PERRL ENT: hearing intact, clear oral mucosa - Neck Neck: Present: supple, normal ROM - Respiratory Respiratory effort: normal Respiratory: bilateral: CTA - Cardiovascular Heart rate: 70 Rhythm: regular Heart Sounds: Present: S1 & S2. Absent: rub, click - Extremities Extremities: no ischemia, pulses intact, pulses symmetrical, No edema Peripheral Pulses: within normal limits - Abdominal General gastrointestinal: Present: soft, non-tender, non-distended, normal bowel sounds Male genitourinary: Present: normal - Integumentary Integumentary: Present: multiple ecchymotic lesions, especially upper ext, dry scrotal edema and tender to touch - Musculoskeletal Musculoskeletal: gait normal, strength equal bilaterally - Psychiatric Psychiatric: appropriate mood/affect, intact judgment & insight - Neurologic Neurologic: CNII-XII intact, moves all extremities - Allied Health Allied health notes reviewed: nursing, case management - Constitutional Vitals: Temp Pulse Resp BP Pulse Ox 97.9 F 80 24 146/66 95 10/12/17 07:48 10/12/17 10:13 10/12/17 07:48 10/12/17 10:13 10/12/17 07:48 Plan Activity: advance as tolerated, fall precautions Diet: low fat, diabetic Special Instructions: record daily weights, record daily BP diary, record blood sugar diary Follow up with: ALLAN GALICIA JR, MD [Primary Care Provider] - 3-5 Days Forms: Warfarin Discharge Instruction Prescriptions: Fluticasone [Flonase] 100 mcg NS QDAY #1 bottle Tamsulosin [Flomax] 0.4 mg PO BID #60 capsule
[2017-10-12] MEDS: COUMADIN PO SCH (16:27)
[2017-10-12] MEDS: FLOMAX PO SCH (21:39)
[2017-10-12] MEDS: GLUCOPHAGE PO SCH (21:39)
--- NOTE | 2017-10-12 22:32 | Progress Note ---
Assessment and Plan Assessment and plan: Patient is a 77-year-old male Morbidly obese who is presenting status post a fall yesterday. Patient states he walks with a walker because of significant weakness and he bought a new walker yesterday that while trying to use it ---it collapsed. Patient states he fell forward and rolled. Patient states he went down on his knees first. The patient denies any loss of consciousness. Patient complaining of bilateral knee pain his right upper extremity has bruising but there is no bony tenderness. Patient also states he has a mild headache and neck tenderness. Patient states takes some pains are approximate 7 out of 10 in severity. Patient has been ambulatory since the fall. This occurred last night and the patient was hurting more this morning and could not stand unassisted of this morning which is what prompted him to come to the hospital. Basically he is not able to walk now because of pain and weakness and Morbid obesity and wants SNF placement for rehab. Testicular ultrasound: pending Assessment and plan (1) Myopathy Current Visit: Yes Status: Acute Plan to address problem: Sec to statins and obesity improving ck evel, normal Needs PT/OT SNF placement (2) Fall Current Visit: Yes Status: Acute Qualifiers: Encounter type: initial encounter Qualified Code(s): W19.XXXA - Unspecified fall, initial encounter Plan to address problem: Sec to weakness PT/OT EVAL (3) Physical debility Current Visit: Yes Status: Acute Plan to address problem: PT/OT SNF placement (4) HTN (hypertension) Current Visit: Yes Status: Chronic Qualifiers: Hypertension type: essential hypertension Qualified Code(s): I10 - Essential (primary) hypertension Plan to address problem: Cont antihypertensives (5) Depression Current Visit: Yes Status: Chronic Qualifiers: Major depression recurrence: recurrent Major depression episode severity: moderate Plan to address problem: Cont antidepressants (6) HLD (hyperlipidemia) Current Visit: Yes Status: Acute Qualifiers: Hyperlipidemia type: mixed hyperlipidemia Qualified Code(s): E78.2 - Mixed hyperlipidemia Plan to address problem: Hold statins b/c of probable myopathy (7) T2DM (type 2 diabetes mellitus) Current Visit: Yes Status: Acute Plan to address problem: Cont Oral hypoglycemics and coverage (8) A-fib Current Visit: Yes Status: Chronic Qualifiers: Atrial fibrillation type: chronic Qualified Code(s): I48.2 - Chronic atrial fibrillation Plan to address problem: Cont Coumadin (9) Secondary Hypercoagulable state on coumadin and therapeutic (10)Srotacal edema R/O Epididymitis Testicular ultrasound scrotal support (11)DVT prophylaxis Current Visit: Yes Status: Acute Plan to address problem: On coumadin pending placement. History Interval history: Patient seen and examined, Improving but still weak, requiring assistance with movement in the bed. Hospitalist Physical - Physical exam Narrative exam: General appearance: Present: no acute distress, well-nourished, morbidly obese - EENT Eyes: Present: PERRL ENT: hearing intact, clear oral mucosa - Neck Neck: Present: supple, normal ROM - Respiratory Respiratory effort: normal Respiratory: bilateral: CTA - Cardiovascular Heart rate: 70 Rhythm: regular Heart Sounds: Present: S1 & S2. Absent: rub, click - Extremities Extremities: no ischemia, pulses intact, pulses symmetrical, No edema Peripheral Pulses: within normal limits - Abdominal General gastrointestinal: Present: soft, non-tender, non-distended, normal bowel sounds Male genitourinary: Present: normal - Integumentary Integumentary: Present: multiple ecchymotic lesions, especially upper ext, dry scrotal edema and tender to touch - Musculoskeletal Musculoskeletal: gait normal, strength equal bilaterally - Psychiatric Psychiatric: appropriate mood/affect, intact judgment & insight - Neurologic Neurologic: CNII-XII intact, moves all extremities - Allied Health Allied health notes reviewed: nursing, case management - Constitutional Vitals: Temp Pulse Resp BP Pulse Ox 98.4 F 79 24 150/62 93 10/12/17 14:46 10/12/17 21:44 10/12/17 14:46 10/12/17 21:44 10/12/17 14:46 General appearance: Present: no acute distress, well-nourished Results - Labs CBC & Chem 7: 10/08/17 16:52 10/11/17 06:16 Labs: Laboratory Last Values WBC 8.0 K/mm3 (4.5-11.0) 10/08/17 16:52 RBC 4.77 M/mm3 (3.65-5.03) 10/08/17 16:52 Hgb 13.4 gm/dl (11.8-15.2) 10/08/17 16:52 Hct 41.0 % (35.5-45.6) 10/08/17 16:52 MCV 86 fl (84-94) 10/08/17 16:52 MCH 28 pg (28-32) 10/08/17 16:52 MCHC 33 % (32-34) 10/08/17 16:52 RDW 15.7 % (13.2-15.2) H 10/08/17 16:52 Plt Count 264 K/mm3 (140-440) 10/08/17 16:52 Lymph % (Auto) 15.6 % (13.4-35.0) 10/08/17 16:52 [place] % (Auto) 8.7 % (0.0-7.3) H 10/08/17 16:52 Eos % (Auto) 5.2 % (0.0-4.3) H 10/08/17 16:52 Baso % (Auto) 0.7 % (0.0-1.8) 10/08/17 16:52 Lymph # 1.3 K/mm3 (1.2-5.4) 10/08/17 16:52 [place] # 0.7 K/mm3 (0.0-0.8) 10/08/17 16:52 Eos # 0.4 K/mm3 (0.0-0.4) 10/08/17 16:52 Baso # 0.1 K/mm3 (0.0-0.1) 10/08/17 16:52 Seg Neutrophils % 69.8 % (40.0-70.0) 10/08/17 16:52 Seg Neutrophils # 5.6 K/mm3 (1.8-7.7) 10/08/17 16:52 PT 21.8 Sec. (12.2-14.9) H 10/12/17 07:52 INR 1.78 (0.87-1.13) H 10/12/17 07:52 APTT 51.7 Sec. (24.2-36.6) H 10/08/17 16:52 Sodium 138 mmol/L (137-145) 10/11/17 06:16 Potassium 3.9 mmol/L (3.6-5.0) 10/11/17 06:16 Chloride 99.1 mmol/L (98-107) 10/11/17 06:16 Carbon Dioxide 25 mmol/L (22-30) 10/11/17 06:16 Anion Gap 18 mmol/L 10/11/17 06:16 BUN 15 mg/dL (9-20) 10/11/17 06:16 Creatinine 0.6 mg/dL (0.8-1.5) L 10/11/17 06:16 Estimated GFR > 60 ml/min 10/11/17 06:16 BUN/Creatinine Ratio 25 % 10/11/17 06:16 Glucose 117 mg/dL (75-100) H 10/11/17 06:16 POC Glucose 155 (70-105) H 10/12/17 05:41 Calcium 8.8 mg/dL (8.4-10.2) 10/11/17 06:16 Total Creatine Kinase 98 units/L (55-170) 10/11/17 06:16 - Imaging and Cardiology CT Scan - head: other MRI - head: other
[2017-10-13 05:26] LABS: INR 1.63 (0.87-1.13)
--- NOTE | 2017-10-13 08:25 | Progress Note ---
Assessment and Plan Assessment and plan: Patient is a 77-year-old male Morbidly obese who is presenting status post a fall yesterday. Patient states he walks with a walker because of significant weakness and he bought a new walker yesterday that while trying to use it ---it collapsed. Patient states he fell forward and rolled. Patient states he went down on his knees first. The patient denies any loss of consciousness. Patient complaining of bilateral knee pain his right upper extremity has bruising but there is no bony tenderness. Patient also states he has a mild headache and neck tenderness. Patient states takes some pains are approximate 7 out of 10 in severity. Patient has been ambulatory since the fall. This occurred last night and the patient was hurting more this morning and could not stand unassisted of this morning which is what prompted him to come to the hospital. Basically he is not able to walk now because of pain and weakness and Morbid obesity and wants SNF placement for rehab. Testicular ultrasound: Hydrocele Assessment and plan (1) Myopathy Current Visit: Yes Status: Acute Plan to address problem: Sec to statins and obesity improving ck evel, normal Awaiting SNF placement (2) Fall Current Visit: Yes Status: Acute Qualifiers: Encounter type: initial encounter Qualified Code(s): W19.XXXA - Unspecified fall, initial encounter Plan to address problem: Sec to weakness PT/OT EVAL (3) Physical debility Current Visit: Yes Status: Acute Plan to address problem: PT/OT SNF placement (4) HTN (hypertension) Current Visit: Yes Status: Chronic Qualifiers: Hypertension type: essential hypertension Qualified Code(s): I10 - Essential (primary) hypertension Plan to address problem: Cont antihypertensives (5) Depression Current Visit: Yes Status: Chronic Qualifiers: Major depression recurrence: recurrent Major depression episode severity: moderate Plan to address problem: Cont antidepressants (6) HLD (hyperlipidemia) Current Visit: Yes Status: Acute Qualifiers: Hyperlipidemia type: mixed hyperlipidemia Qualified Code(s): E78.2 - Mixed hyperlipidemia Plan to address problem: Hold statins b/c of probable myopathy (7) T2DM (type 2 diabetes mellitus) Current Visit: Yes Status: Acute Plan to address problem: Cont Oral hypoglycemics and coverage (8) A-fib Current Visit: Yes Status: Chronic Qualifiers: Atrial fibrillation type: chronic Qualified Code(s): I48.2 - Chronic atrial fibrillation Plan to address problem: Cont Coumadin (9) Secondary Hypercoagulable state on coumadin and therapeutic (10)Srotacal edema R/O Epididymitis Testicular ultrasound scrotal support (11)DVT prophylaxis Current Visit: Yes Status: Acute Plan to address problem: On coumadin pending placement. Hospitalist Physical - Constitutional Vitals: Temp Pulse Resp BP Pulse Ox 98.4 F 79 24 150/62 93 10/12/17 14:46 10/12/17 21:44 10/12/17 14:46 10/12/17 21:44 10/12/17 14:46 General appearance: Present: no acute distress, well-nourished Results - Labs CBC & Chem 7: 10/08/17 16:52 10/11/17 06:16 Labs: Laboratory Last Values WBC 8.0 K/mm3 (4.5-11.0) 10/08/17 16:52 RBC 4.77 M/mm3 (3.65-5.03) 10/08/17 16:52 Hgb 13.4 gm/dl (11.8-15.2) 10/08/17 16:52 Hct 41.0 % (35.5-45.6) 10/08/17 16:52 MCV 86 fl (84-94) 10/08/17 16:52 MCH 28 pg (28-32) 10/08/17 16:52 MCHC 33 % (32-34) 10/08/17 16:52 RDW 15.7 % (13.2-15.2) H 10/08/17 16:52 Plt Count 264 K/mm3 (140-440) 10/08/17 16:52 Lymph % (Auto) 15.6 % (13.4-35.0) 10/08/17 16:52 Lawrence % (Auto) 8.7 % (0.0-7.3) H 10/08/17 16:52 Eos % (Auto) 5.2 % (0.0-4.3) H 10/08/17 16:52 Baso % (Auto) 0.7 % (0.0-1.8) 10/08/17 16:52 Lymph # 1.3 K/mm3 (1.2-5.4) 10/08/17 16:52 Lawrence # 0.7 K/mm3 (0.0-0.8) 10/08/17 16:52 Eos # 0.4 K/mm3 (0.0-0.4) 10/08/17 16:52 Baso # 0.1 K/mm3 (0.0-0.1) 10/08/17 16:52 Seg Neutrophils % 69.8 % (40.0-70.0) 10/08/17 16:52 Seg Neutrophils # 5.6 K/mm3 (1.8-7.7) 10/08/17 16:52 PT 20.3 Sec. (12.2-14.9) H 10/13/17 04:49 INR 1.63 (0.87-1.13) H 10/13/17 04:49 APTT 51.7 Sec. (24.2-36.6) H 10/08/17 16:52 Sodium 138 mmol/L (137-145) 10/11/17 06:16 Potassium 3.9 mmol/L (3.6-5.0) 10/11/17 06:16 Chloride 99.1 mmol/L (98-107) 10/11/17 06:16 Carbon Dioxide 25 mmol/L (22-30) 10/11/17 06:16 Anion Gap 18 mmol/L 10/11/17 06:16 BUN 15 mg/dL (9-20) 10/11/17 06:16 Creatinine 0.6 mg/dL (0.8-1.5) L 10/11/17 06:16 Estimated GFR > 60 ml/min 10/11/17 06:16 BUN/Creatinine Ratio 25 % 10/11/17 06:16 Glucose 117 mg/dL (75-100) H 10/11/17 06:16 POC Glucose 155 (70-105) H 10/12/17 05:41 Calcium 8.8 mg/dL (8.4-10.2) 10/11/17 06:16 Total Creatine Kinase 98 units/L (55-170) 10/11/17 06:16
[2017-10-13] MEDS: HumaLOG SUB-Q SCH ×2 (08:45→11:39)
[2017-10-13] MEDS: FLONASE NS SCH (11:27)
[2017-10-13] MEDS: COLACE PO SCH (11:28)
[2017-10-13] MEDS: CYMBALTA PO SCH (11:28)
[2017-10-13] MEDS: CARDIZEM PO SCH (11:28)
[2017-10-13] MEDS: VITAMIN D3 PO SCH (11:29)
[2017-10-13] MEDS: THERAGRAN-M Tab PO SCH (11:29)
[2017-10-13] MEDS: FOLVITE PO SCH (11:31)
[2017-10-13] MEDS: LOPRESSOR PO SCH (11:31)
[2017-10-13] MEDS: GLUCOTROL XL PO SCH (11:32)
[2017-10-13] MEDS: VITAMIN C PO SCH (11:32)
[2017-10-13 15:04] VITALS: BP 152/69
[2017-10-13] MEDS ORDERED: COUMADIN PO SCH (17:00)
[2017-10-14] MEDS ORDERED: COUMADIN PO SCH (17:00)
== END 2017-10-13 16:03 | DRG 92 ==
LOC: ED 14:41 → 3A 10-09 16:50
PROVIDERS: ADMIT Internal Medicine; ATTEND Internal Medicine
DX: G72.9 Myopathy, unspecified (principal); Z68.43 Body mass index [BMI] 50.0-59.9, adult; D68.69 Other thrombophilia; R26.2 Difficulty in walking, not elsewhere classified; E66.01 Morbid (severe) obesity due to excess calories; Z71.3 Dietary counseling and surveillance; W18.39XA Other fall on same level, initial encounter; Y93.01 Activity, walking, marching and hiking; Y92.89 Other specified places as the place of occurrence of the external cause; Y99.8 Other external cause status; R53.81 Other malaise; I10 Essential (primary) hypertension; F32.9 Major depressive disorder, single episode, unspecified; E11.9 Type 2 diabetes mellitus without complications; E78.5 Hyperlipidemia, unspecified; I48.91 Unspecified atrial fibrillation; N43.3 Hydrocele, unspecified; E78.00 Pure hypercholesterolemia, unspecified; J44.9 Chronic obstructive pulmonary disease, unspecified; Z82.49 Family history of ischemic heart disease and other diseases of the circulatory system; T14.8XXA Other injury of unspecified body region, initial encounter
CPT/HCPCS: 36415; 70450; 70486; 72125; 80048; 82550; 82962; 85025; 85610; 85730; 93975; 94640; G8988-GO; G8989-GO; J1644; J1815; J2270; J2405; J7030